=== PATIENT | female | born 1985 | race Caucasian/White ===

== ENCOUNTER 2016-12-27 04:27 | Inpatient (IN) | payer BC ==
[~2016-12-27] VITALS: Ht 170.2 cm; Wt 92.6 kg
--- NOTE | 2016-12-27 06:57 | ED CLINICAL REPORT ---
Clinical Report - Physicians/Mid Levels [facility] [address] [place] [address] 12/27/2016 4:32 Patient: YOVANA OH Time Seen: 0501. Arrived- By private vehicle. Historian- patient. HISTORY OF PRESENT ILLNESS Chief Complaint: ABDOMINAL PAIN. At its maximum, severity described as moderate. When seen in the E.D., severity described as moderate. Modifying factors. Not worsened by anything. Not relieved by anything. It is described as sharp and it is described as located in the epigastric area and radiating to the upper back. This started today and is still present (unchanged). It was abrupt in onset and has been constant but is not gone now. No nausea, loss of appetite, vomiting or diarrhea. Similar symptoms previously: (thought it was due to GERD. states she would take an anatacid med and it would get better after about 30 - 60 minutes). Recent medical care: The patient was seen recently and hospitalized (had a ). REVIEW OF SYSTEMS No fever, chest pain or difficulty breathing. All systems otherwise negative, except as recorded above. PAST HISTORY See nurses notes. Medications: Percocet Oral (Tablet 5-325 mg) 1 tablet, every 4 hours as needed. Phenergan (Promethazine) Oral (Tablet 25 mg) 1 tablet, 2x a day as needed. Reglan Oral (Tablet 10 mg) 1 tablet, daily. Allergies: Fenugreek. Definite Moderate(rash) PCN. SOCIAL HISTORY Never smoker. Occasional alcohol use. No drug use. No recent travel. Is a local resident. FAMILY HISTORY No family history of gall bladder problems. ADDITIONAL NOTES The nursing notes have been reviewed. PHYSICAL EXAM Vital Signs: 12/27/2016 04:39 BP: 142/81. HR: 76. RR: 16. O2 saturation: 98%. Temp: 97.6 F. Pain level now: 5/10. Oxygen saturation normal. Appearance: Alert. Oriented X3. No acute distress. Eyes: Eyes normal inspection. No scleral icterus. ENT: Ears normal. Nose normal. No nasal discharge. CVS: Normal heart rate and rhythm. Heart sounds normal. Pulses normal. Respiratory: No respiratory distress. Breath sounds normal. Chest nontender. Abdomen: Soft. Moderate tenderness in the right upper quadrant and epigastric area. Bowel sounds normal. No organomegaly. No mass. (anterior abdominal wound is c/d/i. no crepitus.). Back: Normal inspection. No CVA tenderness. Skin: Skin warm and dry. Normal skin color. No rash. Normal skin turgor. Extremities: Extremities exhibit normal ROM. No lower extremity edema. Neuro: No motor deficit. No sensory deficit. LABS, X-RAYS, AND EKG Abdominal Sonogram: Gallstones are present. Pericholecystic fluid is present. The common duct is dilated. (dilated CBD. possible findings of acute cholecystitis.). No gallbladder wall thickening or common duct stones. The study was independently viewed by me and interpreted by the radiologist. The study was discussed with the radiologist (via pacs). Laboratory Tests: UA-Culture if indicated: (EYAL: 12/27/2016 04:52) ( [facility] 12/27/2016 05:18) Final results Test Result Flag Units (Reference) URINE COLOR YELLOW URINE APPEARANCE CLEAR URINE GLUCOSE NEGATIVE (NEGATIVE) URINE BILIRUBIN NEGATIVE (NEGATIVE) URINE KETONE NEGATIVE (NEGATIVE) URINE SPECIFIC GRAVITY 1.020 (1.010-1.030) URINE PH 7.0 (5.0-8.0) URINE PROTEIN NEGATIVE (NEGATIVE) URINE UROBILINOGEN 1.0 EU/dL (0.2-1.0) URINE NITRITE NEGATIVE (NEGATIVE) URINE BLOOD NEGATIVE (NEGATIVE) URINE LEUK ESTERASE NEGATIVE (NEGATIVE) URINE RBC 0-1 rbc/hpf (0-1) URINE WBC 0-1 wbc/hpf (0-1) URINE EPITHELIAL CELLS 0-1 EPI/hpf (0-5) URINE BACTERIA MANY (4+) (NONE SEEN) URINE COMMENT CULTURE INDICATED URINE CULTURES ARE SET-UP BASED ON THE FOLLOWING CRITERIA:POSITIVE NITRITEPOSITIVE LEUKOCYTE ESTERASEGREATER THAN 10 WHITE BLOOD CELLSMODERATE (2+) OR GREATER BACTERIA Urine: (EYAL: 12/27/2016 04:52) ( [facility] 12/27/2016 05:13) Final results Test Result Flag Units (Reference) URINE NEGATIVE CBC w Diff: (EYAL: 12/27/2016 04:52) ( MsgRcvd 12/27/2016 05:11) Final results Test Result Flag Units (Reference) WHITE BLOOD COUNT 9.2 K/uL (4.5-11.5) RED BLOOD COUNT 4.62 M/uL (4.00-5.20) HEMOGLOBIN 13.3 gm/dL (12.0-16.0) HEMATOCRIT 40.1 % (36.0-46.0) MEAN CELL VOLUME 87 fL (80-100) MEAN CORPUSCULAR HGB 29 pg (26-34) MEAN CORPUSCULAR HGB CONC 33 g/dL (31-37) RED CELL DISTRIBUTION WIDTH 12.2 % (11.6-14.8) PLATELET COUNT 234 K/uL (150-400) NEUTROPHIL % 75.2 H % (50-75) LYMPH % 19.1 L % (25-40) MONO % 4.5 % (3-14) EOSINOPHIL % 0.9 % (0-4) BASOPHIL % 0.3 % (0-2) CMP: (EYAL: 12/27/2016 04:52) ( MsgRcvd 12/27/2016 05:21) Final results Test Result Flag Units (Reference) GLUCOSE 110 mg/dL (70-110) BUN 10 mg/dL (7-18) CREATININE 0.8 mg/dL (0.6-1.3) Estimated GFR >60 mL/min Estimated GFR- >60 mL/min Note: Persistent reduction over 3 months in eGFR<60 mL/min/1.73 m2 defines CKD. Patients with eGFR values>=60 mL/min/1.73 m2 may also have CKD if evidence ofpersistent proteinuria. Additional information may be foundat www.kidney.org. SODIUM 140 mmol/L (136-145) POTASSIUM 3.9 mmol/L (3.5-5.1) CHLORIDE 102 mmol/L (98-107) CARBON DIOXIDE 29 mmol/L (21-32) CALCIUM 9.6 mg/dL (8.5-10.1) TOTAL PROTEIN 7.9 g/dL (6.4-8.2) ALBUMIN 3.7 g/dL (3.3-5.0) BILIRUBIN, TOTAL 1.1 H mg/dL (0.0-1.0) ALKALINE PHOSPHATASE 98 U/L (46-116) AST (SGOT) 446 H U/L (15-37) ALT (SGPT) 314 H U/L (12-78) LIPASE 1133 H U/L (73-393) . PROGRESS AND PROCEDURES Course of Care: the patient is a pleasant 31-year-old female with past medical history significant for recent . 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 Patient reports that the child was born premature. Patient is nontoxic on examination. Differential diagnosis at this time includes pancreatitis, cholecystitis, or urinary tract infection. Laboratory studies have been ordered. Ultrasound has also been ordered. Patient is agreeable to the treatment and plan. The patient's workup was unremarkable for elevation in liver enzymes and pancreatic enzymes. Patient also with urinary tract infection. Ceftriaxone was provided in regards to the urinary tract infection. We're currently awaiting the results of the ultrasound. Ultrasound results were found to be significant for dilation and common bile duct. There is also pericholecystic fluid however the gallbladder wall was not thick on examination. Had discussion with the general surgeon regards to these findings. Patient be admitted to the hospital and provided with antibiotics. Because the patient wishes to pump and safer milk, would be concerned for having patient on a fluoroquinolone. Ertapenem would be a safer choice for . We'll provide patient with ertapenem instead of Cipro/Flagyl. Discussed with the patient her workup here in the emergency department including diagnosis and plan of care. All questions have been answered. The patient expressed understanding of these instructions and was agreeable to them. Patient's repeat abdominal examination is improved. Pain has significantly improved with the pain medication provided here in the emergency department. Do not feel patient needs to be admitted to the intensive care unit at this time. Patient is stable for floor treatment. Blood pressure and heart rate and noted to be unremarkable at this time. Critical care performed (35 minutes). Time is exclusive of separately billable procedures. Time includes: direct patient care, patient reassessment, coordination of patient care, review of patient's medical records, medical consultation and documentation of patient care. Consult obtained from surgery. Disposition: Admitted to Acute Care. CLINICAL IMPRESSION gallstone pancreatitis, acute UTI, acute. (Electronically signed by Josias Rivera Dr. 12/27/2016 7:53)
--- NOTE | 2016-12-27 06:57 | ED ORDER SUMMARY ---
..... Patient: YOVANA OH OrderSheet [facility] VisitID: [id number] [place] [address] 31y, F Registration Date/Time: 12/27/2016 ORDER SHEET Weight: 90.7 kg (stated) Allergies: PCN, Fenugreek GENERAL ORDERS: CBC w Diff Urgent (05:05 12/27/2016 Derick Weathers) (5:18 Deuce R.N.) CMP Urgent (05:05 12/27/2016 Derick Weathers) (5:18 Deuce R.N.) UA-Culture if indicated Urgent (05:05 12/27/2016 Derick Weathers) (5:18 Deuce R.N.) Lipase Urgent (05:05 12/27/2016 Derick Weathers) (5:18 Deuce R.N.) Urine Urgent (05:05 12/27/2016 Derick Weathers) (5:18 Deuce R.N.) US Abdomen Limited (No) Urgent (05:20 12/27/2016 Derick Weathers) (Ack 5:23 RKaruga) (5:56 Deuce R.N.) MEDICATION ORDERS: IV FLUIDS: Morphine IV 4 mg (HIGH ALERT MEDICATION, NOW) (05:22 12/27/2016 Derick Weathers) (Ack 5:25 JULIETAradmaria elena R.N.) (5:38 Deuce R.N.) Zofran IV 4 mg (NOW) (05:22 12/27/2016 Derick Weathers) (Ack 5:25 JULIETAradmaria elena R.N.) (5:43 Deuce R.N.) Ceftriaxone IV 1 gm/50mL (NOW) (05:38 12/27/2016 Derick Weathers) (Ack 5:43 JULIETAradmaria elena R.N.) (5:57 JULIETAradmaria elena R.N.) Ertapenem IV 1 gm (NOW) (06:53 12/27/2016 Derick Weathers) (Ack 6:55 CBradmaria elena R.N.) (7:09 JULIETAradmaria elena R.N.) ORDER SHEET NOTES: [Electronically signed by Josias Rivera Dr. (07:53 12/27/2016)] [Electronically signed by Moise Banks R.N. (08:31 12/27/2016)] [Electronically locked/signed by Moise Banks R.N. (08:12/27/2016)]
--- NOTE | 2016-12-27 06:57 | ED ORDER SUMMARY ---
..... Patient: YOVANA OH OrderSheet [facility] VisitID: [id number] [place] [address] 31y, F Registration Date/Time: 12/27/2016 ORDER SHEET Weight: 90.7 kg (stated) Allergies: PCN, Fenugreek GENERAL ORDERS: CBC w Diff Urgent (05:05 12/27/2016 Derick Weathers) (5:18 Deuce R.N.) CMP Urgent (05:05 12/27/2016 Derick Weathers) (5:18 Deuce R.N.) UA-Culture if indicated Urgent (05:05 12/27/2016 Derick Weathesr) (5:18 Deuce R.N.) Lipase Urgent (05:05 12/27/2016 Derick Weathers) (5:18 Deuce R.N.) Urine Urgent (05:05 12/27/2016 Derick Weathers) (5:18 Deuce R.N.) US Abdomen Limited (No) Urgent (05:20 12/27/2016 Derick Weathers) (Ack 5:23 RKaruga) (5:56 Deuce R.N.) MEDICATION ORDERS: IV FLUIDS: Morphine IV 4 mg (HIGH ALERT MEDICATION, NOW) (05:22 12/27/2016 Derick Weathers) (Ack 5:25 JULIETAradmaria elena R.N.) (5:38 Deuce R.N.) Zofran IV 4 mg (NOW) (05:22 12/27/2016 Derick Weathers) (Ack 5:25 JULIETAradmaria elena R.N.) (5:43 Deuce R.N.) Ceftriaxone IV 1 gm/50mL (NOW) (05:38 12/27/2016 Derick Weathers) (Ack 5:43 JULIETAradmaria elena R.N.) (5:57 JULIETAradmaria elena R.N.) Ertapenem IV 1 gm (NOW) (06:53 12/27/2016 Derick Weathers) (Ack 6:55 CBradmaria elena R.N.) (7:09 JULIETAradmaria elena R.N.) ORDER SHEET NOTES: [Electronically signed by Josias Rivera Dr. (07:53 12/27/2016)] [Electronically signed by Moise Banks R.N. (08:31 12/27/2016)] [Electronically locked/signed by Moise Banks R.N. (08:12/27/2016)]
--- NOTE | 2016-12-27 06:57 | ED NURSING NOTES ---
Clinical Report - Nurses [facility] [address] [place] [address] 12/27/2016 4:32 Patient: YOVANA OH TRIAGE Triage time 04:39. Acuity: LEVEL 3. Chief Complaint: ABDOMINAL PAIN, NAUSEA, VOMITING and DIARRHEA and (mid back pain). --04:50 Nneka Nye R.N. 04:39 12/27/16. BP: 142/81 taken on the left arm, while lying. HR: 76 (regular and normal rate). RR: 16. O2 saturation: 98%. Temp: 97.6 F (oral). Pain level now: 10. --04:50 Nneka Nye R.N. Weight: 90.7 kg stated. Height/Length: 67 inches Per Patient. BMI: 31.3. --04:43 Nneka Nye R.N. Medications Reglan Oral (Tablet 10 mg) 1 tablet, daily. --04:46 Nneka Nye R.N. Phenergan (Promethazine) Oral (Tablet 25 mg) 1 tablet, 2x a day as needed. --04:46 Nneka Nye R.N. Percocet Oral (Tablet 5-325 mg) 1 tablet, every 4 hours as needed. --04:48 Nneka Nye R.N. Allergies PCN. --04:45 Nneka Nye R.N. Fenugreek. Definite Moderate(rash) --04:47 Nneka Nye R.N. History Arrived by private vehicle. Historian: patient. Unaccompanied. Primary physician (jayden). This started last night. Onset was abrupt. (at about 2230). ( reports having a November 27, 13 weeks early.). Treatment GROMMET MAN: Took aspirin and an antacid. (phenergan). PAST MEDICAL HX: Immunizations: up-to-date. Last normal menstrual period- Dec 17 2016. Denies current . SOCIAL HX: Never smoker. Occasional alcohol use. No drug use. No infectious disease exposure. No known contact with a sick individual. ABUSE ASSESSMENT: No report of abuse. SELF HARM ASSESSMENT: A self harm assessment was performed. The patient answered "no" to the question "Have you recently felt down, depressed, or hopeless?", "Have you noticed less interest or pleasure in doing things?", "Do you have thoughts of harming or killing yourself?", "Are you here because you tried to hurt yourself?", "Have you ever tried to hurt yourself before today?", "Have you recently had thoughts about harming or killing others?" and "Do you have any dangerous items in your possession?". FALL RISK ASSESSMENT: Fall risk assessment completed. No fall risk identified. NUTRITIONAL RISK ASSESSMENT: The nutritional risk assessment revealed no deficiencies. FUNCTIONAL ASSESSMENT: Functional assessment: no impairments noted. LEARNING NEEDS ASSESSMENT: The learning needs assessment revealed no barriers. SKIN INTEGRITY ASSESSMENT: Skin integrity risk assessment completed. No skin integrity risk identified. --04:50 Nneka Nye R.N. ADDITIONAL SURGERIES: . Laparoscopy. --04:47 Nneka Nye R.N. Interventions ID band on patient. --04:50 Nneka Nye R.N. PHYSICAL ASSESSMENT Ambulatory to room. GENERAL / NEURO / PSYCH: Alert. Oriented X 4. Appears in no acute distress. HEENT: Mucous membranes are pink. RESPIRATORY: Respirations not labored. Breath sounds within normal limits. CVS: Normal sinus rhythm noted. Capillary refill less than 2 seconds. GI / : Abdomen soft and nontender. Bowel sounds within normal limits. SKIN: Skin is warm and dry. --04:51 Nneka Nye R.N. NURSING PROGRESS NOTES Two patient identifiers checked. Call light placed in reach. Side rails up x 1. Bed placed in lowest position. Brakes of bed on. --04:51 Nneka Nye R.N. Patient ready for evaluation- chart flagged. --04:51 Nneka Nye R.N. 04:51 12/27/2016 Site #1 started via IV in the left antecubital space with an 20g angiocath, with aseptic technique and good blood return; one attempt. Blood drawn: rainbow set. Labeled in the presence of the patient and sent to the lab. Saline lock flushed with 10 mL saline. --04:51 Nneka Nye R.N. 04:55 12/27/16. Patient ID band checked for patient name and birthdate. Blood samples drawn from the left antecubital space by nurse per protocol ; labeled in presence of the patient and sent to lab: rainbow set. Line flushed with 10 mL normal saline post blood draw. --04:55 Andreina Hilliard R.N. Patient ID band checked for patient name: patient confirmed. Instructions provided to collect clean catch urine and patient verbalized understanding. Clean catch urine collected with return of yellow-colored clear urine; sample sent to lab for urinalysis. Specimen labeled in the presence of the patient. --05:01 Nneka Nye R.N. 05:32 12/27/2016 Morphine IVP 4 mg given over 2 minute(s) via site #1. Allergies verified, confirmed 5 rights and sedative warning given to the patient. IV patency established. IV site checked: no pain, redness, or swelling. IV flushed thoroughly pre- and post-medication administration. IVP given by RN. --05:38 Nneka Nye R.N. 05:32 12/27/2016 Zofran (Ondansetron HCl) IVP 4 mg given over 2 minute(s) via site #1. Allergies verified and confirmed 5 rights. IV patency established. IV site checked: no pain, redness, or swelling. IV flushed thoroughly pre- and post-medication administration. IVP given by RN. --05:43 Nneka Nye R.N. 05:57 12/27/2016 Started 1 gm of Ceftriaxone IVPB in bag #1 50 mL; over 20 minute(s) via site #1 via IV pump. Allergies verified and confirmed 5 rights. IV patency established. IV site checked: no pain, redness, or swelling. IV flushed thoroughly pre- and post-medication administration. --05:57 Nneka Nye R.N. ( US at bedside). --05:58 Nneka Nye R.N. 05:57 12/27/16. BP: 143/84 taken on the right arm, while lying. HR: 71. RR: 18. O2 saturation: 98% on room air. Temp: deferred. Pain level now: 12/07. --05:58 Nneka Nye R.N. 06:18 12/27/2016 Ceftriaxone IVPB Discontinued: bag #1 completed. Total amount infused: 50 mL. IV patency established. IV site checked: no pain, redness, or swelling. IV flushed thoroughly. --06:35 Nneka Nye R.N. 06:36 12/27/16. BP: 118/69 taken on the right arm, while lying. HR: 65 (regular and normal rate). RR: 16 (regular and unlabored). O2 saturation: 97% on room air. Temp: deferred. Pain level now: 08/09. --06:37 Nneka Nye R.N. Overall patient status is improved- she states feels better. GI / : The patient reports abdominal pain is still present but improving and currently mild in severity and constant. Bowel sounds within normal limits. --06:37 Nneka Nye R.N. 06:00 12/27/2016 Morphine IVP Response: pain is improving. Symptoms have improved the patient feels better. --06:37 Nneka Nye R.N. 07:09 12/27/2016 Ertapenem IVP 1 gm given over 30 minute(s) via site #1. Allergies verified and confirmed 5 rights. IV patency established. IV site checked: no pain, redness, or swelling. IV flushed thoroughly pre- and post-medication administration. IVP given by RN. --07:09 Nneka Nye R.N. DISPOSITION / DISCHARGE Departure time: 08:15 Dec 27 2016. Admitted to Acute Care. ( report given). --08:31 Moise Banks R.N. 07:30 12/27/16. BP: 124/78. HR: 76. RR: 18. O2 saturation: 98%. Temp: 98 F. Pain level now: 09/09. --08:31 Moise Banks R.N. Locked/Released at 12/27/2016 8:32 by Moise Banks R.N.
--- NOTE | 2016-12-27 08:23 | DIAGNOSTIC IMAGING REPORT ---
PROCEDURE: US ABDOMEN ULTRASOUND-LIMITED INDICATION: EPIGASTRIC ABDO PAIN TECHNIQUE: Thompson scale and color Doppler sonographic images of the abdomen were obtained. COMPARISON: None. FINDINGS: Multiple mobile gallstones, largest 1.9 cm, with pericholecystic fluid although gallbladder wall is normal, 2.1 mm. Dilated common bile duct measures 8 mm. Negative Michelle's sign. Liver and pancreas are normal. Pancreatic duct measures 2.3 mm. IVC is patent. Normal hepatopetal flow. Right kidney measures 12.7 cm. IMPRESSION: 1. Cholelithiasis with pericholecystic fluid suggestive of acute cholecystitis with dilated common bile duct suggestive of distal obstruction. Recommend HIDA scan
--- NOTE | 2016-12-27 08:32 | ED MED RECONCILIATION SUMMARY ---
Patient: YOVANA OH Medication Reconciliation Report [facility] VisitID: [id number] [place] [address] 31y, F Registration Date/Time: 12/27/2016 Weight: 90.7 kg Height/Length: 67 in. BMI: 31.3 ALLERGIES: Fenugreek, PCN The patient's Home Medications are listed below: THE FOLLOWING MEDICATIONS NEED TO BE RECONCILED: Percocet Oral (5-325 mg) 1 tablet, every 4 hours Phenergan (Promethazine) Oral (25 mg) 1 tablet, 2x a day Reglan Oral (10 mg) 1 tablet, daily The source(s) of the original Home Medication information: Not obtained. The following Medications were given to the patient in the Emergency Department: Morphine [IVP] IVP 4 mg, administered: 12/27/2016 5:32:00 AM Zofran [IVP] IVP 4 mg, administered: 12/27/2016 5:32:00 AM Ceftriaxone [IVPB] IVPB bolus 0, then 1 gm, administered: 12/27/2016 5:57:00 AM Ertapenem [IVP] IVP 1 gm, administered: 12/27/2016 7:09:00 AM The following Medications were prescribed to the patient: None.
--- NOTE | 2016-12-27 08:32 | ED DISCHARGE INSTRUCTIONS ---
Patient: YOVANA OH General Instructions [facility] VisitID: [id number] [address] [place] [address] 31y, F Registration Date/Time: 12/27/2016 gallstone pancreatitis, acute UTI, acute. (Electronically signed by Josias Rivera Dr. 12/27/2016 7:53)
--- NOTE | 2016-12-27 08:32 | ED MAR SUMMARY ---
..... Medication Administration Record [address] [place] [address] Patient: YOVANA OH Visit ID: [id number] 31y, F Weight: 90.7 kg Height/Length: 67 in BMI: 31.3 ALLERGIES: Fenugreek, PCN Given 05:32 12/27/2016 Nneka Nye R.N. Medication Administered: MORPHINE [IVP], Dose: 4 mg IVP over 2 minute(s), Site: #1 left AC. Medication Ordered: Morphine IV 4 mg (HIGH ALERT MEDICATION, NOW). Given 05:32 12/27/2016 Nneka Nye R.N. Medication Administered: ZOFRAN [IVP] (ONDANSETRON HCL), Dose: 4 mg IVP over 2 minute(s), Site: #1 left AC. Medication Ordered: Zofran IV 4 mg (NOW). Start 05:57 12/27/2016 Nneka Nye R.N., Stop 06:18 12/27/2016 Nneka Nye R.N. Medication Administered: CEFTRIAXONE [IVPB], Dose: 1 gm IVPB over 20 minute(s), Dispensed: 50 mL bag, Site: #1 left AC. Medication Ordered: Ceftriaxone IV 1 gm/50mL (NOW). Given 07:09 12/27/2016 Nneka Nye R.N. Medication Administered: ERTAPENEM [IVP], Dose: 1 gm IVP over 30 minute(s), Site: #1 left AC. Medication Ordered: Ertapenem IV 1 gm (NOW).
--- NOTE | 2016-12-27 08:32 | ED MED RECONCILIATION SUMMARY ---
Patient: YOVANA OH Medication Reconciliation Report [facility] VisitID: [id number] [place] [address] 31y, F Registration Date/Time: 12/27/2016 Weight: 90.7 kg Height/Length: 67 in. BMI: 31.3 ALLERGIES: Fenugreek, PCN The patient's Home Medications are listed below: THE FOLLOWING MEDICATIONS NEED TO BE RECONCILED: Percocet Oral (5-325 mg) 1 tablet, every 4 hours Phenergan (Promethazine) Oral (25 mg) 1 tablet, 2x a day Reglan Oral (10 mg) 1 tablet, daily The source(s) of the original Home Medication information: Not obtained. The following Medications were given to the patient in the Emergency Department: Morphine [IVP] IVP 4 mg, administered: 12/27/2016 5:32:00 AM Zofran [IVP] IVP 4 mg, administered: 12/27/2016 5:32:00 AM Ceftriaxone [IVPB] IVPB bolus 0, then 1 gm, administered: 12/27/2016 5:57:00 AM Ertapenem [IVP] IVP 1 gm, administered: 12/27/2016 7:09:00 AM The following Medications were prescribed to the patient: None.
--- NOTE | 2016-12-27 08:32 | ED MAR SUMMARY ---
..... Medication Administration Record [facility] [address] [place] [address] Patient: YOVANA OH Visit ID: [id number] 31y, F Weight: 90.7 kg Height/Length: 67 in BMI: 31.3 ALLERGIES: Fenugreek, PCN Given 05:32 12/27/2016 Nneka Nye R.N. Medication Administered: MORPHINE [IVP], Dose: 4 mg IVP over 2 minute(s), Site: #1 left AC. Medication Ordered: Morphine IV 4 mg (HIGH ALERT MEDICATION, NOW). Given 05:32 12/27/2016 Nneka Nye R.N. Medication Administered: ZOFRAN [IVP] (ONDANSETRON HCL), Dose: 4 mg IVP over 2 minute(s), Site: #1 left AC. Medication Ordered: Zofran IV 4 mg (NOW). Start 05:57 12/27/2016 Nneka Nye R.N., Stop 06:18 12/27/2016 Nneka Nye R.N. Medication Administered: CEFTRIAXONE [IVPB], Dose: 1 gm IVPB over 20 minute(s), Dispensed: 50 mL bag, Site: #1 left AC. Medication Ordered: Ceftriaxone IV 1 gm/50mL (NOW). Given 07:09 12/27/2016 Nneka Nye R.N. Medication Administered: ERTAPENEM [IVP], Dose: 1 gm IVP over 30 minute(s), Site: #1 left AC. Medication Ordered: Ertapenem IV 1 gm (NOW).
--- NOTE | 2016-12-27 08:32 | ED DISCHARGE INSTRUCTIONS ---
Patient: YOVANA OH General Instructions [facility] VisitID: [id number] [address] [place] [address] 31y, F Registration Date/Time: 12/27/2016 gallstone pancreatitis, acute UTI, acute. (Electronically signed by Josias Rivera Dr. 12/27/2016 7:53)
[2016-12-27 08:39] VITALS: BP 123/77
[2016-12-27] MEDS ORDERED: [UNRECOGNIZED DRUG - OTHER] PO (09:36)
[2016-12-27] MEDS ORDERED: FISH OIL1000 M1 PO (09:36)
[2016-12-27] MEDS ORDERED: PHENERGAN EQUIV25 MG PO (09:37)
[2016-12-27] MEDS ORDERED: VITAMIN C1000 MG PO (09:37)
[2016-12-27] MEDS ORDERED: ZOFRAN ODT4 MG PO (09:38)
[2016-12-27] MEDS ORDERED: REGLAN10 MG PO (09:38)
[2016-12-27] MEDS ORDERED: CLARITIN REDITA10 MG PO (09:39)
[2016-12-27] MEDS ORDERED: PERCOCET1 TA1 PO (09:39)
--- NOTE | 2016-12-27 10:26 | CONSULTATION REPORT ---
DATE OF CONSULTATION: 12/27/2016 CHIEF COMPLAINT: 1. Epigastric abdominal pain HISTORY OF PRESENT ILLNESS: The patient is a 31-year-old woman who presented with a history of persistent epigastric abdominal pain associated with nausea and vomiting. The patient reports having had several attacks dating back several months earlier, but that they were much milder in nature. The pain is in the epigastrium and radiates to the upper back. It started yesterday prior to admission. The patient tried antacids without relief. MEDICAL/SURGICAL HISTORY: Past medical history of no chronic medical problems. Past surgeries: 2016 and 2007. She had laparoscopic removal of an IUD in 2009. Previous injuries, right wrist fracture. MEDICATIONS: 1. vitamins. 2. Nutritional supplements. ALLERGIES: 1. PENICILLIN. 2. FENUGREEK. SOCIAL HISTORY: The patient is single. 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 The patient smoked until 2005 and at that time smoked for 4 years , 1/2 pack per day. She does not currently smoke. She takes occasional alcohol. FAMILY HISTORY: Both parents are alive. They have arthritis. She has a sibling with migraine headaches and 1 child has asthma. She also has a 1-month-old premature child who is currently in the ICU. The patient is pumping breastmilk as she was . REVIEW OF SYSTEMS: A multipoint review of systems was obtained by questionnaire. Pertinent positives include abdominal pain. She reports past histories of rashes , ankle swelling. She has had some difficulty with sleeping and anxiety. PHYSICAL EXAMINATION: VITAL SIGNS: Temperature 98.4. Pulse 62, respirations 18, blood pressure 123/77, room air saturation 98%. HEENT: Ears and nose without gross external lesions. Eyes were equal. There is no clinical icterus. NECK: Without palpable mass or thyromegaly. There are no bruits in the neck. CHEST: Clear to auscultation. HEART: Regular, without murmur or gallop. ABDOMEN: Reveals discomfort in the mid epigastrium with deep palpation. There is no involuntary guarding. Bowel sounds are active. EXTREMITIES: Symmetric. She moves without restriction. LAB/IMAGING: The white count is 9.2, hemoglobin and hematocrit 13 and 40. Her chemistries show normal electrolytes. The bilirubin is slightly elevated at 1.1, AST and ALT are elevated at 446 and 314 with normal alkaline phosphatase 98. Lipase is markedly elevated at 1133. Abdominal ultrasound showed multiple gallstones with pericholecystic fluid and 2.1 mm gallbladder wall. There is a dilated common duct up to 8 mm. No common duct stone is mentioned. IMPRESSION: 1. Gallstone pancreatitis PLAN: I recommend the patient be admitted and treated with IV fluids and kept n.p.o. with repeat pancreatic labs tomorrow. If her pancreatitis resolves then proceeding to a laparoscopic cholecystectomy will be done once this happens. I explained to the patient and her significant other the plans involved and the timing of gallbladder surgery. Endoscopic retrograde cholangiopancreatogram is a consideration, but in most cases of this nature, the offending common duct stone has already passed through and does not require endoscopic retrograde cholangiopancreatogram or it can be cleared at that time of a laparoscopic surgery. I made her aware that postoperatively if we should do a laparoscopic cholecystectomy, there are generic risks as well as the potential risk of common duct stones and of postoperative pancreatitis. She would like to proceed as described to her.
[2016-12-27 10:33] VITALS: BP 111/54
[2016-12-27 14:29] VITALS: BP 111/62
[2016-12-27 18:13] VITALS: BP 106/61
[2016-12-27 22:33] VITALS: BP 130/69
[2016-12-28] VITALS (9 sets, daily range): BP systolic 92–126; BP diastolic 48–83
--- NOTE | 2016-12-28 12:25 | Progress Note ---
Subjective General Pt. feels fine pain has resolved. Physical Exam Vital Signs / I&Os Vital Signs Date Time Temp Pulse Resp B/P Pulse O2 O2 Flow FiO2 Ox Delivery Rate 12/28 1113 98.8 63 18 102/48 98 12/28 0759 98.1 64 18 102/51 100 12/28 0312 0.0 12/28 0305 97.7 77 18 92/68 97 Room Air 12/27 2233 98.1 85 18 130/69 97 Room Air 12/27 1813 98.2 63 18 106/61 98 Room Air 12/27 1429 97.5 74 18 111/62 98 Room Air I&O 12/27 0800 12/27 1600 12/28 0000 Intake Total 0 1026 Output Total 350 550 Balance -350 476 General Appearance Alert, Oriented X3, Cooperative Abdomen No tenderness LAB Results Laboratory Tests 12/28 0510 Chemistry Total Bilirubin (0.0 - 1.0 mg/dL) 0.6 Direct Bilirubin (0 - 0.3 mg/dL) 0.1 AST (15 - 37 U/L) 105 ALT (12 - 78 U/L) 254 Alkaline Phosphatase (46 - 116 U/L) 87 Total Protein (6.4 - 8.2 g/dL) 6.2 Albumin (3.3 - 5.0 g/dL) 2.9 Lipase (73 - 393 U/L) 263 Assessment and Plan Problem List 1. Gallstone pancreatitis Plan lap izaiah today, alternatives, benefits and risks explained including risks of infection, bleeding,scars, pain , damage to local structures, possible common duct stones, post op pancreatitis and others. The pt. wishes to proceed with surgery as described.
--- NOTE | 2016-12-28 16:13 | DIAGNOSTIC IMAGING REPORT ---
PROCEDURE: XR INTRAOPERATIVE LAP CAMILO INDICATION: IOC TECHNIQUE: Intraoperative fluoroscopy provided for Dr. Riuz performing an intraoperative cholangiogram following cholecystectomy. Total fluoroscopy time 7 seconds. Cumulative dose 2.0 mGy. COMPARISON: Abdominal ultrasound 12/27/2016. FINDINGS: Single intraoperative fluoroscopic spot image of the right upper quadrant of the abdomen demonstrates cannulation of the cystic duct stump and opacification of the intrahepatic and extrahepatic biliary tree. There are no filling defects. There is normal passage of contrast into the duodenum. IMPRESSION: 1. Negative intraoperative cholangiogram.
[2016-12-28] MEDS ORDERED: NORCO1 TA1 PO (16:15)
--- NOTE | 2016-12-28 16:17 | Provider's Discharge Care Plan ---
Problem, Goal, Plan Problem List 1. Gallstone pancreatitis
--- NOTE | 2016-12-28 16:17 | Provider's Discharge Care Plan ---
Problem, Goal, Plan Problem List 1. Gallstone pancreatitis
--- NOTE | 2016-12-28 19:14 | OPERATIVE REPORT ---
DATE OF SURGERY: 12/28/2016 SURGEON: Carmelo Ruiz MD [facility] OPERATOR: Reba Kauffman III, MD PREOPERATIVE DIAGNOSIS: 1. Gallstone pancreatitis POSTOPERATIVE DIAGNOSIS: 1. Cholelithiasis with gallstone pancreatitis PROCEDURE PERFORMED: 1. Laparoscopic cholecystectomy and cholangiography ANESTHESIA: General. INDICATIONS: The patient is a 31-year-old woman presenting with gallstone pancreatitis. Her pancreatic enzymes have returned to normal and she is undergoing a laparoscopic cholecystectomy today. SURGICAL TECHNIQUE: The patient was taken to the operating room, where a general anesthetic was administered and the patient prepped and draped in the usual sterile fashion. A local anesthetic of 0.5% Marcaine with epinephrine was used at each incision site. An infraumbilical incision was made and a Veress needle used to insufflate the abdominal cavity. A 10 mm cannula was passed and 3 additional cannulas were placed in the upper abdomen in the usual locations. The gallbladder was elevated and the cystic duct dissected out at the neck of the gallbladder. A clip was placed. A fluoroscopic cholangiogram was carried out which revealed free flow into the duodenum and no filling defects in the hepatic tree. The cystic duct and cystic artery were both isolated, doubly clipped and divided. The gallbladder was stripped from the gallbladder fossa intact using electrocautery. It was delivered to the upper midline trocar site where it was emptied of bile and multiple gallstones. The empty gallbladder was slipped out and submitted for histopathology. The gallbladder bed was inspected and found to be hemostatic with no evidence of bile leak. Irrigation and suction were used. Additional Marcaine was instilled, gas was evacuated, and the skin was closed in the midline sites with interrupted subcuticular 4-0 Vicryl suture. Steri-Strips and dressings were applied at all sites. The patient left in good condition. No intraoperative complications were encountered.
== END 2016-12-28 19:24 | disposition home or self-care (01) | DRG 769 ==
LOC: ED SRH 04:27 → TRANS SRH 06:59 → ACUTE2 SRH 08:35
PROVIDERS: Surgery; ADMIT Student in an Organized Health Care Education/Training Program
PROC: BF101ZZ Fluoroscopy of Bile Ducts using Low Osmolar Contrast (ICD-10-PCS; principal; 2016-12-28 16:00)
PROC: 0FT44ZZ Resection of Gallbladder, Percutaneous Endoscopic Approach (ICD-10-PCS; principal; 2016-12-28 16:00)
DX: O99.63 Diseases of the digestive system complicating the puerperium (principal); K85.10 Biliary acute pancreatitis without necrosis or infection; K80.20 Calculus of gallbladder without cholecystitis without obstruction
CPT/HCPCS: 50002; 60001; 70002; 80102; 80212; 80248; 82794; 82807; 83339; 83348; 83587; 83920; 83937; 83982; 84038; 90004; 90074; 90100; 90469; 92235; 92710; 93070; 95059